=== PATIENT | female | born 1990 | race African-American/Black ===

== ENCOUNTER 2017-07-16 09:19 | Emergency (ER) | payer SELFPAY ==
[~2017-07-16] VITALS: Ht 162.6 cm; Wt 61.2 kg
[2017-07-16] MEDS ORDERED: Norco 5mg/325mg tab PO ONE (09:45)
[2017-07-16] MEDS ORDERED: IBUPROFEN600 MG ORAL (10:27)
[2017-07-16] MEDS ORDERED: NORCO 5-325 TA1 EACH ORAL (10:27)
[2017-07-16] MEDS ORDERED: CYCLOBENZAPRINE10 MG ORAL (10:27)
[2017-07-16 10:35] VITALS: BP 122/68
[2017-07-16 10:38] VITALS: BP 127/69
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
--- NOTE | 2017-07-16 13:34 | Diagnostic Imaging Report ---
Indication: Pain 3 views of the left knee were obtained. Findings: No acute fracture, malalignment, or joint effusion are identified. Joint space is relatively well-maintained. Impression: Negative for acute injury
--- NOTE | 2017-07-16 13:34 | Diagnostic Imaging Report ---
Indication: Back pain Comparison: None Findings: 3 views of the lumbar spine were obtained. No acute fracture or malalignment is identified. Vertebral body heights and disk spaces are well maintained. Posterior elements are unremarkable. Impression: No acute findings.
--- NOTE | 2017-07-16 13:35 | Diagnostic Imaging Report ---
Indication: pain Right hand pain Findings: 3 views of the right hand were obtained. Normal bony mineralization and alignment are demonstrated. No acute fractures, erosions, or periosteal reaction are seen. Soft tissues are unremarkable. 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
== END 2017-07-16 11:05 | disposition home or self-care (01) ==
LOC: EMR 09:45
DX: S66.911A Strain of unspecified muscle, fascia and tendon at wrist and hand level, right hand, initial encounter (principal); S86.812A Strain of other muscle(s) and tendon(s) at lower leg level, left leg, initial encounter; S39.012A Strain of muscle, fascia and tendon of lower back, initial encounter; V48.5XXA Car driver injured in noncollision transport accident in traffic accident, initial encounter; Y92.9 Unspecified place or not applicable
CPT/HCPCS: 72020; 99284

== ENCOUNTER 2017-07-30 08:45 | Emergency (ER) | payer SELFPAY ==
[~2017-07-30] VITALS: Ht 160 cm; Wt 54.4 kg
[~2017-07-30 08:45] MED LIST: CYCLOBENZAPRINE10 MG ORAL; IBUPROFEN600 MG ORAL; NORCO 5-325 TA1 EACH ORAL
[2017-07-30 09:04] VITALS: BP 119/72
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
[2017-07-30] MEDS ORDERED: IBUPROFEN600 MG ORAL (09:43)
[2017-07-30] MEDS ORDERED: NORCO 5-325 TA1 EACH ORAL (09:43)
[2017-07-30 09:51] VITALS: BP 119/72
== END 2017-07-30 09:51 | disposition home or self-care (01) ==
LOC: EMR 09:33
DX: S39.012D Strain of muscle, fascia and tendon of lower back, subsequent encounter (principal); S80.02XD Contusion of left knee, subsequent encounter; V43.52XD Car driver injured in collision with other type car in traffic accident, subsequent encounter; M79.644 Pain in right finger(s); M79.641 Pain in right hand
CPT/HCPCS: 99282

== ENCOUNTER 2019-06-02 08:03 | Emergency (ER) | payer MEDICAID ==
[~2019-06-02] VITALS: Ht 162.6 cm; Wt 57.2 kg
--- NOTE | 2019-06-02 08:39 | NUR ---
ED Nurse Note: Pt walked into ED for c/o hypemesis for 3 months. Pt is 3 months . Pt states she has not been able to keep food down and has thrown up all her food for past 2 days. Pt is alert and orientedx4. Denies WATKINS and dizziness.
[2019-06-02 08:41] VITALS: BP 124/81
[2019-06-02] MEDS ORDERED: Ondansetron ODT 8mg tab ORAL ONE (09:00)
--- NOTE | 2019-06-02 09:22 | Emergency Room Report ---
History of Present Illness General Chief Complaint: Nausea Source: Patient Present Illness [facility] This patient is 11 weeks . She is G2, P1. She states that she has had nausea and vomiting of since about 6 to 7 weeks. She states that the last 2 days have been very severe. She states she is having difficulty even keeping down fluids. She denies fever chills. She denies abdominal pain. She denies vaginal bleeding or discharge. She denies dysuria or hematuria. She has no other complaints. Allergies: Coded Allergies: No Known Allergies (Unverified , 07/16/17) Patient History Past Medical History: none Social History: Denies: smoking, alcohol use, drug use Reviewed Nursing Documentation: PMH: Agreed; PSxH: Agreed Review of Systems All Other Systems: negative except mentioned in HPI Physical Exam Vital Signs Date Time Temp Pulse Resp B/P (MAP) Pulse Ox O2 Delivery O2 Flow Rate FiO2 06/02/19 08:34 97.9 76 16 119/79 (92) 97 Room Air Sp02 EP Interpretation: reviewed, normal General Appearance: no apparent distress, alert, GCS 15, non-toxic Head: normocephalic, atraumatic Eyes: bilateral eye normal inspection ENT: hearing grossly normal, normal pharynx, no angioedema, normal voice Neck: normal inspection, full range of motion Respiratory: no respiratory distress, no retraction, no accessory muscle use, speaking full sentences Cardiovascular #1: normal inspection, no edema Gastrointestinal: normal inspection Rectal: deferred Musculoskeletal: normal inspection, normal range of motion, gait/station normal , non-tender Neurologic: alert, oriented x3, responsive, speech normal, normal inspection, no focal defects Psychiatric: judgement/insight normal, memory normal, mood/affect normal, no suicidal/homicidal ideation Skin: no rash, normal color Medical Decision Making Diagnostic Impression: Primary Impression: Nausea and vomiting in ER Course This patient has nausea and vomiting of first trimester . She was given 2 L of IV fluids. I also gave her Zofran ODT after educating her on the black box warning for cardiac abnormalities in the fetus. She understood the risk and agreed to the Zofran. Basic laboratory work-up to include CBC, CMP and urinalysis are unremarkable. The patient's urinalysis was contaminated. I do not feel that this patient needs antibiotics for urinary tract infection. Patient was educated on supportive measures and given a prescription for Zofran. Overall she is well-appearing. She is given close return precautions and follow-up instructions. Laboratory Tests Test 06/02/19 09:08 White Blood Count 8.8 K/UL (4.8-10.8) Red Blood Count 5.33 M/UL (4.20-5.40) Hemoglobin 15.1 G/DL (12.0-16.0) Hematocrit 46.2 % (37.0-47.0) Mean Corpuscular Volume 87 FL (80-99) Mean Corpuscular Hemoglobin 28.3 PG (27.0-31.0) Mean Corpuscular Hemoglobin Concent 32.6 G/DL (32.0-36.0) Red Cell Distribution Width 14.3 % (11.6-14.8) Platelet Count 272 K/UL (150-450) Mean Platelet Volume 6.1 FL (6.5-10.1) L Neutrophils (%) (Auto) 75.5 % (45.0-75.0) H Lymphocytes (%) (Auto) 18.5 % (20.0-45.0) L Monocytes (%) (Auto) 4.8 % (1.0-10.0) Eosinophils (%) (Auto) 0.2 % (0.0-3.0) Basophils (%) (Auto) 1.0 % (0.0-2.0) Urine Color Yellow Urine Appearance Slightly cloudy Urine pH 5 (4.5-8.0) Urine Specific Eldred 1.025 (1.005-1.035) Urine Protein 2+ (NEGATIVE) H Urine Glucose (UA) Negative (NEGATIVE) Urine Ketones 4+ (NEGATIVE) H Urine Blood 3+ (NEGATIVE) H Urine Nitrite Negative (NEGATIVE) Urine Bilirubin Negative (NEGATIVE) Urine Urobilinogen Normal MG/DL (0.0-1.0) Urine Leukocyte Esterase 1+ (NEGATIVE) H Urine RBC 5-10 /HPF (0 - 2) H Urine WBC 2-4 /HPF (0 - 2) Urine Squamous Epithelial Cells Many /LPF (NONE/OCC) H Urine Bacteria Few /HPF (NONE) Sodium Level 132 MMOL/L (136-145) L Potassium Level 3.7 MMOL/L (3.5-5.1) Chloride Level 97 MMOL/L (98-107) L Carbon Dioxide Level 25 MMOL/L (21-32) Anion Gap 10 mmol/L (5-15) Blood Urea Nitrogen 13 mg/dL (7-18) Creatinine 0.9 MG/DL (0.55-1.30) Estimated Glomerular Filtration Rate > 60 mL/min (>60) Glucose Level 80 MG/DL (74-106) Calcium Level 10.2 MG/DL (8.5-10.1) H Total Bilirubin 0.5 MG/DL (0.2-1.0) Aspartate Amino Transferase (AST) 12 U/L (15-37) L Alanine Aminotransferase (ALT) 23 U/L (12-78) Alkaline Phosphatase 73 U/L (46-116) Total Protein 9.4 G/DL (6.4-8.2) H Albumin 4.6 G/DL (3.4-5.0) Globulin 4.8 g/dL Albumin/Globulin Ratio 1.0 (1.0-2.7) Last Vital Signs Date Time Temp Pulse Resp B/P (MAP) Pulse Ox O2 Delivery O2 Flow Rate FiO2 06/02/19 08:41 97.9 18 124/81 99 Room Air 06/02/19 08:34 76 Status: improved Disposition: HOME, SELF-CARE Condition: Improved Referrals: [facility],REFERRING (PCP) Bertha Fox DO Jun 02, 2019 09:22
[2019-06-02 09:29] LABS: APPEARANCE,URINE SLIGHTLY CLOUDY; BILIRUBIN, URINE NEGATIVE (NEGATIVE); GLUCOSE, URINE (UA) NEGATIVE (NEGATIVE); KETONES,URINE 4+ (NEGATIVE); LEUKOCYTE ESTERASE ,URINE 1+ (NEGATIVE); NITRITE,URINE NEGATIVE (NEGATIVE); PH,URINE 5 (4.5-8.0); PROTEIN,URINE 2+ (NEGATIVE); UROBILINOGEN,URINE NORMAL MG/DL (0.0-1.0)
[2019-06-02 09:30] LABS: COLOR,URINE YELLOW
[2019-06-02 09:35] LABS: EOSINOPHILS % (AUTO) 0.2 % (0.0-3.0); HEMATOCRIT 46.2 % (37.0-47.0); HEMOGLOBIN 15.1 G/DL (12.0-16.0); LYMPHOCYTES % (AUTO) 18.5 % (20.0-45.0); MEAN CORPUSCULAR VOLUME 87 FL (80-99); MONOCYTES % (AUTO) 4.8 % (1.0-10.0); NEUTROPHILS % (AUTO) 75.5 % (45.0-75.0); PLATELET COUNT 272 K/UL (150-450); RED BLOOD COUNT 5.33 M/UL (4.20-5.40); RED CELL DISTRIBUTION WIDTH 14.3 % (11.6-14.8); WHITE BLOOD COUNT 8.8 K/UL (4.8-10.8)
[2019-06-02 09:43] LABS: ANION GAP 10 mmol/L (5-15); BLOOD UREA NITROGEN 13 mg/dL (7-18); CALCIUM 10.2 MG/DL (8.5-10.1); CARBON DIOXIDE 25 MMOL/L (21-32); CHLORIDE 97 MMOL/L (98-107); CREATININE 0.9 MG/DL (0.55-1.30); POTASSIUM 3.7 MMOL/L (3.5-5.1); SODIUM 132 MMOL/L (136-145)
[2019-06-02 09:48] LABS: ALANINE AMINOTRANSFERASE 23 U/L (12-78); ALBUMIN 4.6 G/DL (3.4-5.0); ALKALINE PHOSPHATASE 73 U/L (46-116); ASPARTATE AMINO TRANSFERASE 12 U/L (15-37); BILIRUBIN,TOTAL 0.5 MG/DL (0.2-1.0)
[2019-06-02] MEDS ORDERED: ZOFRAN ODT8 MG ORAL (10:20)
--- NOTE | 2019-06-02 10:30 | NUR ---
ED Nurse Note: Dr Fox states to D/C when fluids are done.
[2019-06-02 11:30] VITALS: BP 125/82
--- NOTE | 2019-06-02 11:31 | NUR ---
ER DISCHARGE NOTE: Patient is cleared to be discharged per ERMD, pt is aox4, on room air, with stable vital signs. pt was given dc and prescription instructions, pt was able to verbalize understanding, pt id band and iv site removed without complications. pt is able to ambulate with steady gait. pt took all belongings.
== END 2019-06-02 11:31 | disposition home or self-care (01) ==
LOC: EMR 08:50
DX: O21.9 Vomiting of pregnancy, unspecified (principal); Z3A.11 11 weeks gestation of pregnancy
CPT/HCPCS: 36415; 80053; 81003; 85025; 96360; J7030; Q0162; Z7502; 99284

== ENCOUNTER 2019-06-23 08:29 | Emergency (ER) | payer MEDICAID ==
[~2019-06-23] VITALS: Ht 162.6 cm; Wt 59.0 kg
[~2019-06-23 08:29] MED LIST changes: +ZOFRAN ODT8 MG ORAL
[2019-06-23 09:51] LABS: APPEARANCE,URINE CLOUDY; BILIRUBIN, URINE NEGATIVE (NEGATIVE); GLUCOSE, URINE (UA) NEGATIVE (NEGATIVE); KETONES,URINE 4+ (NEGATIVE); LEUKOCYTE ESTERASE ,URINE NEGATIVE (NEGATIVE); NITRITE,URINE NEGATIVE (NEGATIVE); PH,URINE 5 (4.5-8.0); PROTEIN,URINE 2+ (NEGATIVE); UROBILINOGEN,URINE NORMAL MG/DL (0.0-1.0)
[2019-06-23 10:02] LABS: COLOR,URINE YELLOW
[2019-06-23 10:03] LABS: ALANINE AMINOTRANSFERASE 22 U/L (12-78); ALBUMIN 4.1 G/DL (3.4-5.0); ALBUMIN/GLOBULIN RATIO 0.9 (1.0-2.7); ALKALINE PHOSPHATASE 68 U/L (46-116); ASPARTATE AMINO TRANSFERASE 18 U/L (15-37); BILIRUBIN,TOTAL 0.5 MG/DL (0.2-1.0); BLOOD UREA NITROGEN 10 mg/dL (7-18); CALCIUM 9.9 MG/DL (8.5-10.1); CHLORIDE 98 MMOL/L (98-107); CREATININE 0.7 MG/DL (0.55-1.30); SODIUM 134 MMOL/L (136-145)
[2019-06-23 10:12] LABS: CARBON DIOXIDE 22 MMOL/L (21-32)
--- NOTE | 2019-06-23 10:23 | Emergency Room Report ---
History of Present Illness General Chief Complaint: Complications Source: Patient Present Illness HPI Disclaimer: Please note that this report is being documented using [employer] technology. This can lead to erroneous entry secondary to incorrect interpretation by the dictating instrument. HPI: 29-year-old female G2, P1 approximately 13 weeks presented for nausea vomiting and vaginal spotting. She states she has had 2 days of nausea and vomiting unable to tolerate oral intake. No fevers. She denies any abdominal pain at this time. She did have vaginal bleeding that has since resolved. She states she had just some mild spotting. No urinary complaints. She is followed by [facility]. She has had an ultrasound this which was normal. She did have hyperemesis issues with her first as well. Patient has been taking Zofran at home that was prescribed by OB that has not helped. PMH: Patient denies any past medical history PSH: Reviewed Social Hx: Denies smoking drinking or drug use Allergies: Coded Allergies: No Known Allergies (Unverified , 07/16/17) COVID-19 Screening Contact w/high risk pt: No Recent Travel to affected area: No Experienced COVID-19 symptoms?: No Patient History Now: Yes : 3 Para: 1 Nursing Documentation-PMH Past Medical History: No Stated History Review of Systems All Other Systems: negative except mentioned in HPI Physical Exam Vital Signs Date Time Temp Pulse Resp B/P (MAP) Pulse Ox O2 Delivery O2 Flow Rate FiO2 06/23/19 08:51 98.2 71 20 110/77 (88) 97 Room Air Sp02 EP Interpretation: reviewed, normal General Appearance: well appearing, no apparent distress Head: normocephalic, atraumatic Eyes: bilateral eye PERRL, bilateral eye EOMI ENT: hearing grossly normal, moist mucus membranes Neck: full range of motion, supple Respiratory: lungs clear, normal breath sounds, no rhonchi, no respiratory distress, no retraction, no wheezing Cardiovascular #1: normal peripheral pulses, regular rate, rhythm, no murmur Gastrointestinal: non tender, soft, non-distended, no guarding Neurologic: alert, oriented x3, no focal defects Skin: normal color, warm/dry Medical Decision Making Diagnostic Impression: Primary Impression: Nausea and vomiting during Additional Impression: Second trimester ER Course MDM: 29-year-old female presented with nausea and vomiting with vaginal spotting in early differential diagnosis: Hyperemesis, threatened , UTI, dehydration Clinical course Patient placed on 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 After initial history and physical I ordered labs, ultrasound and IV hydration. Laboratory studies showed no leukocytosis, urinalysis with 2-4 WBCs nitrite negative On reevaluation: Patient in no acute distress nontoxic-appearing stable vitals denied pain denied bleeding, no active vomiting Stable and discharged to home with prescriptions for Phenergan. Zofran was not effective for patient at home. Followup with PMD. Return to ED if symptoms recur or worsen Laboratory Tests Test 06/23/19 09:30 White Blood Count 10.0 K/UL (4.8-10.8) Red Blood Count 5.00 M/UL (4.20-5.40) Hemoglobin 14.7 G/DL (12.0-16.0) Hematocrit 42.9 % (37.0-47.0) Mean Corpuscular Volume 86 FL (80-99) Mean Corpuscular Hemoglobin 29.4 PG (27.0-31.0) Mean Corpuscular Hemoglobin Concent 34.3 G/DL (32.0-36.0) Red Cell Distribution Width 13.4 % (11.6-14.8) Platelet Count 238 K/UL (150-450) Mean Platelet Volume 6.9 FL (6.5-10.1) Neutrophils (%) (Auto) 79.6 % (45.0-75.0) H Lymphocytes (%) (Auto) 14.8 % (20.0-45.0) L Monocytes (%) (Auto) 4.5 % (1.0-10.0) Eosinophils (%) (Auto) 0.1 % (0.0-3.0) Basophils (%) (Auto) 0.9 % (0.0-2.0) Urine Color Yellow Urine Appearance Cloudy Urine pH 5 (4.5-8.0) Urine Specific Rumsey 1.030 (1.005-1.035) Urine Protein 2+ (NEGATIVE) H Urine Glucose (UA) Negative (NEGATIVE) Urine Ketones 4+ (NEGATIVE) H Urine Blood 1+ (NEGATIVE) H Urine Nitrite Negative (NEGATIVE) Urine Bilirubin Negative (NEGATIVE) Urine Urobilinogen Normal MG/DL (0.0-1.0) Urine Leukocyte Esterase Negative (NEGATIVE) Urine RBC 2-4 /HPF (0 - 2) H Urine WBC 0-2 /HPF (0 - 2) Urine Squamous Epithelial Cells Many /LPF (NONE/OCC) H Urine Bacteria Few /HPF (NONE) Urine Mucus Moderate /LPF (NONE/OCC) H Sodium Level 134 MMOL/L (136-145) L Potassium Level 4.0 MMOL/L (3.5-5.1) Chloride Level 98 MMOL/L (98-107) Carbon Dioxide Level 22 MMOL/L (21-32) Blood Urea Nitrogen 10 mg/dL (7-18) Creatinine 0.7 MG/DL (0.55-1.30) Estimated Glomerular Filtration Rate > 60 mL/min (>60) Glucose Level 80 MG/DL (74-106) Calcium Level 9.9 MG/DL (8.5-10.1) Total Bilirubin 0.5 MG/DL (0.2-1.0) Aspartate Amino Transferase (AST) 18 U/L (15-37) Alanine Aminotransferase (ALT) 22 U/L (12-78) Alkaline Phosphatase 68 U/L (46-116) Total Protein 8.8 G/DL (6.4-8.2) H Albumin 4.1 G/DL (3.4-5.0) Globulin 4.7 g/dL Albumin/Globulin Ratio 0.9 (1.0-2.7) L Lipase 52 U/L (73-393) L Human Chorionic Gonadotropin, Quant 91860 mIU/mL (1-6) H Last Vital Signs Date Time Temp Pulse Resp B/P (MAP) Pulse Ox O2 Delivery O2 Flow Rate FiO2 06/23/19 08:51 98.2 71 20 110/77 (88) 97 Room Air Status: improved Disposition: HOME, SELF-CARE Condition: Stable Scripts Promethazine Hcl* (PHENERGAN*) 25 Mg Tablet 25 MG ORAL Q6H PRN for Nausea & Vomiting, #15 TAB 0 Refills Prov: Richard Macias M.D. 06/23/19 Referrals: [facility],REFERRING (PCP) Richard Macias M.D. Jun 23, 2019 10:23
[2019-06-23 10:25] LABS: BASOPHILS % (AUTO) 0.9 % (0.0-2.0); EOSINOPHILS % (AUTO) 0.1 % (0.0-3.0); HEMATOCRIT 42.9 % (37.0-47.0); HEMOGLOBIN 14.7 G/DL (12.0-16.0); LYMPHOCYTES % (AUTO) 14.8 % (20.0-45.0); MEAN CORPUSCULAR VOLUME 86 FL (80-99); MONOCYTES % (AUTO) 4.5 % (1.0-10.0); NEUTROPHILS % (AUTO) 79.6 % (45.0-75.0); PLATELET COUNT 238 K/UL (150-450); RED CELL DISTRIBUTION WIDTH 13.4 % (11.6-14.8)
--- NOTE | 2019-06-23 11:00 | NUR ---
ED Nurse Note: Pt came into ED w/ c/o hyperemesis for days. Pt is 14 weeks . Pt is alert and orientedx4, ambulatory. Pt states she was here a few days ago for same problem.
[2019-06-23] MEDS ORDERED: PHENERGAN25 M1 ORAL (11:30)
--- NOTE | 2019-06-23 11:47 | Diagnostic Imaging Report ---
Indication: Vomiting and vaginal spotting, right patient Technique: Transabdominal and transvaginal images of the uterus and fetus Comparison: none Findings: There is a single live intrauterine . This demonstrates positive heart motion, heart rate is 151 bpm. There is positive motion. Placenta is anterior and fundal and clears the internal cervical os. Cervix is closed, endocervical canal measuring 4 cm in length. Normal amniotic fluid volume, amniotic fluid index 12.8 cm. Estimated gestational age by average of ultrasound measurements is 13 weeks 5 days. Estimated date of delivery is 12/24/2019. Detailed assessment of anatomy not performed, due to early stage of , emergent nature of exam. Neither ovary could be visualized Impression: Single live intrauterine , estimated gestational age 13 weeks 5 days by average ultrasound measurements. No unusual features Note nonvisualization of the ovaries
[2019-06-23 11:48] VITALS: BP 117/79
== END 2019-06-23 11:50 | disposition home or self-care (01) ==
LOC: EMR 09:00
DX: O21.9 Vomiting of pregnancy, unspecified (principal); Z3A.13 13 weeks gestation of pregnancy
CPT/HCPCS: 36415; 76801; 80053; 81003; 83690; 84702; 85025; 96361; 96374; J2405; J7030; Z7502; 99284